=== PATIENT | male | born 1965 | race Two or more races ===

== ENCOUNTER 2016-06-25 15:26 | Emergency (ER) | payer BC ==
[~2016-06-25] VITALS: Ht 172.7 cm; Wt 90.7 kg
[2016-06-25 16:15] VITALS: BP 112/74
[2016-06-25 16:16] VITALS: BP 112/74
--- NOTE | 2016-06-25 16:40 | Emergency Room Report ---
History of Present Illness General Chief Complaint: General Complaint Source: Patient Present Illness HPI Patient is a 51-year-old male who presented after having accidentally removed his peripheral inserted central catheter. Patient had previous history of brain tumor surgery and had been being treated for subsequent infection with IV antibiotics. The patient been seen by home health nursing. The patient is on no medications currently taking. He denied increased pain or swelling. Patient requested having the area of the catheter check. Allergies: Coded Allergies: No Known Allergies (Unverified , 06/25/16) Patient History Past Medical History: see triage record Reviewed Nursing Documentation: PMH: Agreed, PSxH: Agreed Nursing Documentation-PM Past Medical History: No History, Except For Review of Systems All Other Systems: negative except mentioned in HPI Physical Exam Vital Signs Date Time Temp Pulse Resp B/P Pulse Ox O2 Delivery O2 Flow Rate FiO2 06/25/16 15:51 97.5 93 16 109/71 100 Room Air General Appearance: well appearing, no apparent distress, alert, GCS 15 Head: other - post surgical changes to scalp ENT: hearing grossly normal, normal voice Neck: full range of motion, supple Respiratory: no respiratory distress, speaking full sentences Cardiovascular #1: normal inspection Gastrointestinal: normal inspection Musculoskeletal: normal inspection, no calf tenderness Neurologic: normal inspection, alert, oriented x3, normal gait Psychiatric: mood/affect normal Skin: normal color, no rash, other - swelling to left frontal area Medical Decision Making Diagnostic Impression: Primary Impression: Visit for wound check ER Course Patient presented for wound check. Differential diagnosis included was not limited to infected wound, nonhealed wound, neuroma, healed wound. Patient's benign exam and does not appear to require any further imaging or laboratory testing at this time. The patient's shows no current evidence of infection requiring laboratory testing at this time. The patient is advised to followup in the next few days for PICC line placement Last Vital Signs Date Time Temp Pulse Resp B/P Pulse Ox O2 Delivery O2 Flow Rate FiO2 06/25/16 16:16 97.4 89 15 112/74 100 Room Air Status: improved Disposition: HOME, SELF-CARE Condition: Stable Referrals: NOT CHOSEN IPA/,REFERRING (PCP) Patient Instructions: Wound Check Kevin Robles Jun 25, 2016 16:40
== END 2016-06-25 16:17 | disposition home or self-care (01) ==
LOC: EMR 16:03
DX: Z48.01 Encounter for change or removal of surgical wound dressing (principal); Z98.890 Other specified postprocedural states; Z86.03 Personal history of neoplasm of uncertain behavior
CPT/HCPCS: 99282